=== PATIENT | male | born 1935 | race Caucasian/White ===

== ENCOUNTER → 2019-02-26 | Outpatient (CLI) | payer MEDICARE ==
[~2019-02-26] MED LIST: ASPI81TA87 PO; BUME1TAB7 PO; CARV12.580 PO; CLOP75TA3 PO; FOLI0.8T2 PO; NITR0.4T50 SL; OMEP20CA12 PO; RANI-662 PO; ROSU40 PO; TICA90TA PO
[2019-02-26 09:56] VITALS: BP 99/54
[2019-02-26 11:19] VITALS: BP 146/75
== END | disposition home or self-care (01) ==
LOC: SRCNTR 09:52
PROVIDERS: ATTEND Internal Medicine Critical Care Medicine
DX: J96.91 Respiratory failure, unspecified with hypoxia (principal); I13.2 Hypertensive heart and chronic kidney disease with heart failure and with stage 5 chronic kidney disease, or end stage renal disease; I50.9 Heart failure, unspecified; E11.22 Type 2 diabetes mellitus with diabetic chronic kidney disease; N18.6 End stage renal disease
CPT/HCPCS: G0463

== ENCOUNTER → 2019-03-02 | Outpatient (CLI) | payer MEDICARE, OTHER | END | disposition home or self-care (01) | LOC: RADPV 09:59 | PROVIDERS: ATTEND Internal Medicine Critical Care Medicine | DX: I50.9 Heart failure, unspecified (principal); Z95.0 Presence of cardiac pacemaker ==